=== PATIENT | female | born 1995 | race Caucasian/White ===

== ENCOUNTER 2019-01-22 12:39 | Emergency (ER) | payer MEDICAID, OTHER ==
[2019-01-22] MEDS ORDERED: Sulfamethoxazole/Trimethoprim 800-160 MG Tab PO ONE (12:40)
--- NOTE | 2019-01-22 12:57 | EDM.PDOC ---
ED HPI GENERAL MEDICAL PROBLEM - General Chief Complaint: General Stated Complaint: abscess on arm Time Seen by Provider: 01/22/19 12:45 Source of Information: Reports: Patient History Limitations: Reports: No Limitations - History of Present Illness INITIAL COMMENTS - FREE TEXT/NARRATIVE: Patient to the emergency department complaining of a reddened area to the right upper arm and below the left eye for the past few days. The patient denies any fever or denies any change in vision denies any ear, nose, throat symptoms denies any neck, back pain or stiffness denies any other symptoms at this point. Onset: Gradual Duration: Day(s): Location: Reports: Upper Extremity, Right, Other (Just below the left lower eyelid) Severity: Mild Improves with: Reports: None Worsens with: Reports: None Associated Symptoms: Reports: No Other Symptoms. 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) Right Upper Arm Pain Score (Numeric/FACES): 6 - Related Data Allergies Allergy/AdvReac Type Severity Reaction Status Date / Time bee venom protein (honey bee) Allergy Swelling Verified 01/22/19 12:40 Home Meds: Home Meds Sulfamethoxazole/Trimethoprim [Bactrim Ds Tablet] 1 each PO BID 10 Days #20 tablet 01/22/19 [Rx] Past Medical History Respiratory History: Reports: Asthma Psychiatric History: Reports: Anxiety, Depression Social & Family History - Family History Cardiac: Reports: Hypertension (Smoke) - Tobacco Use Smoking Status *Q: Current Every Day Smoker (urine) Tobacco Use Within Last Twelve Months: Cigarettes - Alcohol Use Alcohol Use History: No - Living Situation & Occupation Living situation: Reports: with Family ED ROS GENERAL - Review of Systems Review Of Systems: See Below Constitutional: Reports: No Symptoms. Denies: Fever, Chills HEENT: Reports: No Symptoms Respiratory: Reports: No Symptoms Cardiovascular: Reports: No Symptoms Musculoskeletal: Reports: No Symptoms Skin: Reports: Other (Abscesses as above) Psychiatric: Reports: No Symptoms ED EXAM, GENERAL - Physical Exam Exam: See Below Exam Limited By: No Limitations General Appearance: Alert, WD/WN, No Apparent Distress Ears: Normal External Exam Nose: Normal Inspection Throat/Mouth: Normal Lips, Normal Voice, No Airway Compromise Head: Atraumatic, Normocephalic Neck: Normal Inspection, Supple, Non-Tender, Full Range of Motion Respiratory/Chest: No Respiratory Distress, Lungs Clear, Normal Breath Sounds Cardiovascular: Normal Peripheral Pulses, Regular Rate, Rhythm, No Murmur Peripheral Pulses: 2+: Radial (R) Extremities: Normal Inspection, Normal Range of Motion, Non-Tender, Normal Capillary Refill Neurological: Alert, Oriented, Normal Cognition, Normal Gait Psychiatric: Normal Affect, Normal Mood Skin Exam: Warm, Dry, Normal Color, Other (Small abscess to the right upper arm as well as below the left lower eyelid) Course - Vital Signs Last Recorded V/S: Last Vital Signs Temp 37.7 C 01/22/19 12:44 Pulse 106 H 01/22/19 12:44 Resp 16 01/22/19 12:44 BP 147/89 H 01/22/19 12:44 Pulse Ox 100 01/22/19 12:44 Departure - Departure Time of Disposition: 12:56 Disposition: Home, Self-Care 01 Condition: Good Clinical Impression: Skin abscess - Discharge Information *PRESCRIPTION DRUG MONITORING PROGRAM REVIEWED*: Not Applicable *COPY OF PRESCRIPTION DRUG MONITORING REPORT IN PATIENT BLANK: Not Applicable Prescriptions: Sulfamethoxazole/Trimethoprim [Bactrim Ds Tablet] 1 each PO BID 10 Days #20 tablet Instructions: Skin Abscess, [id number] Additional Instructions: Apply warm moist heat off and on frequently Bactrim DS one every 12 hours for 10 days Follow-up in the clinic this coming week, call tomorrow for an appointment time Return to emergency department sooner if worse or any problems - Problem List & Annotations (1) Skin abscess SNOMED Code(s): 51062900 Code(s): L02.91 - CUTANEOUS ABSCESS, UNSPECIFIED Status: Acute Priority: High Qualifiers: Site of cutaneous abscess: extremity Site of cutaneous abscess of extremity : upper extremity Laterality: right Qualified Code(s): L02.413 - Cutaneous abscess of right upper limb - Problem List Review Problem List Initiated/Reviewed/Updated: Yes - Assessment/Plan Plan: The patient was evaluated in the emergency department the patient does have 2 abscesses neither abscesses ready for incision and draining, the patient will be advised to apply warm moist he off and on frequently she'll be given Bactrim DS 1 by mouth twice a day for 10 days she'll be advised to have this rechecked in the clinic this week and I advised her that an incision and drain might be necessary at that point. The patient is to return to the emergency department sooner if worsening problems
[2019-01-22] MEDS ORDERED: Take Home: Sulfamethoxazole/Trimethoprim 800-160 MG Tab, 2 Tab Pack PO ONE (12:59)
== END 2019-01-22 13:19 | disposition home or self-care (01) ==
LOC: CC.ED 12:39
DX: L02.413 Cutaneous abscess of right upper limb (principal); H00.035 Abscess of left lower eyelid; F17.210 Nicotine dependence, cigarettes, uncomplicated; Z91.030 Bee allergy status
CPT/HCPCS: 99282; A9270

== ENCOUNTER 2019-01-26 02:56 | Emergency (ER) | payer MEDICAID ==
[2019-01-26] MEDS ORDERED: Lidocaine 1% 20 ML MDV INJECT ONE (03:23)
[2019-01-26] MEDS ORDERED: cefTRIAXone 1 GM Vial IM ONE (03:23)
--- NOTE | 2019-01-26 03:27 | EDM.PDOC ---
ED HPI GENERAL MEDICAL PROBLEM - General Chief Complaint: General Stated Complaint: ABSCESS Time Seen by Provider: 01/26/19 03:14 Source of Information: Reports: Patient History Limitations: Reports: No Limitations - History of Present Illness INITIAL COMMENTS - FREE TEXT/NARRATIVE: Patient presents to ER with complaints of right upper arm discomfort. Has known abscess to this area. Was seen in ER on Wednesday. Area was warm and red but unable to be lanced at that time. WAs sent home with Bactrim #2 tabs and was to fill Rx on Wednesday. Patient states she did not know where the script was sent so she has not picked it up or taken any further meds since Wednesday am. Tonight the abscess did pop, has had purulent drainage from the area. Denies fever. States pain improved since it started draining. Concerned about the drainage. Onset: Gradual Duration: Day(s): Location: Reports: Upper Extremity, Right Quality: Reports: Ache Severity: Mild Associated Symptoms: Reports: No Other Symptoms - Related Data Allergies Allergy/AdvReac Type Severity Reaction Status Date / Time bee venom protein (honey bee) Allergy Swelling Verified 01/26/19 02:57 Home Meds: Home Meds Sulfamethoxazole/Trimethoprim [Bactrim Ds Tablet] 1 each PO BID 10 Days #20 tablet 01/22/19 [Rx] Past Medical History Cardiovascular History: Reports: Hypertension Respiratory History: Reports: Asthma Musculoskeletal History: Reports: Fracture Psychiatric History: Reports: Anxiety, Depression - Past Surgical History Cardiovascular Surgical History: Reports: None Respiratory Surgical History: Reports: None Musculoskeletal Surgical History: Reports: None Social & Family History - Family History Family Medical History: Noncontributory Cardiac: Reports: Hypertension - Tobacco Use Smoking Status *Q: Current Every Day Smoker Years of Tobacco use: 10 Packs/Tins Daily: 0.5 - Caffeine Use Caffeine Use: Reports: Soda - Recreational Drug Use Recreational Drug Use: No - Living Situation & Occupation Living situation: Reports: with Family ED ROS GENERAL - Review of Systems Review Of Systems: See Below Constitutional: Denies: Fever, Chills, Malaise, Weakness HEENT: Reports: No Symptoms Respiratory: Denies: Shortness of Breath, Cough Cardiovascular: Denies: Chest Pain, Edema, Lightheadedness Endocrine: Denies: Fatigue GI/Abdominal: Denies: Abdominal Pain, Nausea, Vomiting : Reports: No Symptoms Musculoskeletal: Reports: Arm Pain Skin: Reports: Erythema Neurological: Reports: No Symptoms Psychiatric: Reports: No Symptoms ED EXAM, GENERAL - Physical Exam Exam: See Below Exam Limited By: No Limitations General Appearance: Alert, WD/WN, No Apparent Distress Nose: Normal Inspection, Normal Mucosa Throat/Mouth: Normal Inspection, Normal Oropharynx Head: Normocephalic Neck: Normal Inspection, Supple, Non-Tender Respiratory/Chest: No Respiratory Distress, Lungs Clear, Normal Breath Sounds Cardiovascular: Regular Rate, Rhythm Neurological: Alert, Oriented Skin Exam: Erythema (irregular 3 cm erythema to right upper arm, draining serosanguinous drainage. Tender to palpation. ) Course - Vital Signs Last Recorded V/S: Last Vital Signs Temp 99.1 F 01/26/19 03:00 Pulse 115 H 01/26/19 03:00 Resp 18 01/26/19 03:00 BP 134/76 01/26/19 03:00 Pulse Ox 100 01/26/19 03:00 - Orders/Labs/Meds Meds: Medications Discontinued Medications Generic Name Dose Route Start Last Admin Trade Name Flora PRN Reason Stop Dose Admin Ceftriaxone Sodium 1 gm 01/26/19 03:23 01/26/19 03:28 Rocephin IM 01/26/19 03:24 1 gm ONETIME ONE Administration Lidocaine HCl 20 ml 01/26/19 03:23 01/26/19 03:29 Xylocaine 1% INJECT 01/26/19 03:24 2.1 ml ONETIME ONE Administration - Re-Assessments/Exams Free Text/Narrative Re-Assessment/Exam: 01/26 Rocephin given. Discharge home on Bactrim Departure - Departure Time of Disposition: 03:24 Disposition: Home, Self-Care 01 Condition: Good Clinical Impression: Skin abscess - Discharge Information Referrals: PCP,Unknown [Primary Care Provider] - Forms: ED Department Discharge Additional Instructions: 1. Warm packs to arm 2. Tylenol or ibuprofen for fever or discomfort 3. Bactrim DS one twice a day for 7 days 4. Follow up with your provider if persisting concerns.
== END 2019-01-26 03:34 | disposition home or self-care (01) ==
LOC: CC.ED 02:56
DX: L02.413 Cutaneous abscess of right upper limb (principal); I10 Essential (primary) hypertension; Z91.030 Bee allergy status
CPT/HCPCS: 96372; 99282; J0696; J2001

== ENCOUNTER 2020-02-04 18:46 | Emergency (ER) | payer MEDICAID ==
[2020-02-04] MEDS ORDERED: Lidocaine 1% 20 ML MDV INJECT ONE (18:48)
[2020-02-04] MEDS ORDERED: Diphtheria,Pertussis(Acell),Tetanus Vaccine 0.5 ML Syringe IM ONE (18:49)
[2020-02-04] MEDS ORDERED: Bacitracin/Neomycin/Polymyxin B Oint 0.9 GM U/D Packet TOP ONE (19:07)
--- NOTE | 2020-02-04 19:12 | EDM.PDOC ---
ED HPI GENERAL MEDICAL PROBLEM - General Chief Complaint: Laceration Stated Complaint: hand laceration Time Seen by Provider: 02/04/20 18:47 Source of Information: Reports: Patient History Limitations: Reports: No Limitations - History of Present Illness INITIAL COMMENTS - FREE TEXT/NARRATIVE: This patient is a 25 year old female that presents to the ER. Patient reports cutting wood with a knife. Patient reports accidently cutting her left hand with the knife. No other injuries. 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 [No Known Home Meds] 02/04/20 [History] Past Medical History - Past Health History Medical/Surgical History: Denies Medical/Surgical History Cardiovascular History: Reports: Hypertension Respiratory History: Reports: Asthma Musculoskeletal History: Reports: Fracture Psychiatric History: Reports: Anxiety, Depression - Past Surgical History Cardiovascular Surgical History: Reports: None Respiratory Surgical History: Reports: None Musculoskeletal Surgical History: Reports: None Social & Family History - Family History Family Medical History: Noncontributory Cardiac: Reports: Hypertension - Tobacco Use Smoking Status *Q: Current Every Day Smoker Years of Tobacco use: 10 Packs/Tins Daily: 0.5 - Caffeine Use Caffeine Use: Reports: None - Recreational Drug Use Recreational Drug Use: No - Living Situation & Occupation Living situation: Reports: with Family ED ROS GENERAL - Review of Systems Review Of Systems: See Below Constitutional: Reports: No Symptoms HEENT: Reports: No Symptoms Respiratory: Reports: No Symptoms Cardiovascular: Reports: No Symptoms Musculoskeletal: Reports: Hand Pain (left pain at laceration site. ) Skin: Reports: Wound (laceration left hand base of thumb) Neurological: Reports: No Symptoms Psychiatric: Reports: No Symptoms ED EXAM, SKIN/RASH Exam: See Below Exam Limited By: No Limitations General Appearance: Alert, WD/WN, No Apparent Distress Respiratory/Chest: No Respiratory Distress, Lungs Clear, Normal Breath Sounds, No Accessory Muscle Use Cardiovascular: Normal Peripheral Pulses, Regular Rate, Rhythm Peripheral Pulses: 2+: Radial (L), Radial (R) Extremities: Normal Range of Motion, Normal Capillary Refill, Other (multiple scarring vega to BUE. Mild tenderness over laceration site. ROM intact. Neurovascular intact. sensory intact. motor ntact. pulses +2, cap refill < 2 sec. No pain with flexion or extension of thumb or hand left.) Neurological: Alert, Oriented Psychiatric: Normal Affect, Normal Mood Skin: Warm, Dry, Normal Color, No Rash, Wound/Incision (laceration left hand base of thumb dorsal side) Location, Skin: Upper Extremity, Left ED SKIN PROCEDURES - Laceration/Wound Repair Left Hand Appearance: Superficial Distal NVT: Neuro & Vascular Intact, No Tendon Injury Anesthetic Type: Local Local Anesthesia - Lidocaine (Xylocaine): 1% Plain Local Anesthetic Volume: 1cc Skin Prep: Chlorhexidine (Hibiciens) Exploration/Debridement/Repair: Wound Explored, In a Bloodless Field, Explored to Base, No Foreign Material Found Closed with: Sutures Lac/Wound length In cm: 1 Suture Size: 5-0 # of Sutures: 2 Suture Type: Nylon Tetanus Status Addressed: Yes Complications: No Course - Vital Signs Last Recorded V/S: Last Vital Signs Temp 97.8 F 02/04/20 18:59 Pulse 88 02/04/20 18:59 Resp 12 02/04/20 18:59 BP 142/75 H 02/04/20 18:59 Pulse Ox 100 02/04/20 18:59 - Orders/Labs/Meds Orders: Active Orders 24 hr Category Date Time Status Vaccines to be Administered [RC] PER UNIT ROUTINE Care 02/04/20 18:49 Active Meds: Medications Discontinued Medications Generic Name Dose Route Start Last Admin Trade Name Freq PRN Reason Stop Dose Admin Diphtheria/Tetanus/Acell Pertussis 0.5 ml 02/04/20 18:49 02/04/20 18:53 Adacel IM 02/04/20 18:50 0.5 ml .ONCE ONE Administration Lidocaine HCl 20 ml 02/04/20 18:48 02/04/20 18:56 Xylocaine 1% INJECT 02/04/20 18:49 20 ml ONETIME ONE Administration Neomycin/Polymyxin/Bacitracin 1 each 02/04/20 19:07 02/04/20 19:10 Triple Antibiotic Oint TOP 02/04/20 19:08 1 each ONETIME ONE Administration Departure - Departure Time of Disposition: 19:07 Disposition: Home, Self-Care 01 Condition: Good Clinical Impression: Laceration - Discharge Information *PRESCRIPTION DRUG MONITORING PROGRAM REVIEWED*: Not Applicable *COPY OF PRESCRIPTION DRUG MONITORING REPORT IN PATIENT BLANK: Not Applicable Instructions: Laceration Care, Adult, [id number], Sutures, Cuong, or Adhesive Wound Closure, [id number] Referrals: PCP,None [Primary Care Provider] - Forms: ED Department Discharge Additional Instructions: Followup with primary care provider or clinic in about 5 days for suture removal Return to the ER for worsening of condition or any emergent concerns such as fever, vomiting, redness, drainage, infection Wash wound with soap and water twice a day gently, rinse, pat dry. Keep clean and covered Sepsis Event Note (ED) - Evaluation Sepsis Screening Result: No Definite Risk - Focused Exam Vital Signs: Vital Signs Temp Pulse Resp BP Pulse Ox 02/04/20 18:59 97.8 F 88 12 142/75 H 100 - My Orders Last 24 Hours: My Active Orders 02/04/20 18:49 Vaccines to be Administered [RC] PER UNIT ROUTINE - Assessment/Plan Last 24 Hours: My Active Orders 02/04/20 18:49 Vaccines to be Administered [RC] PER UNIT ROUTINE Plan: PLEASE SEE RN NOTE FOR PFSH.
== END 2020-02-04 19:19 | disposition home or self-care (01) ==
LOC: CC.ED 18:46
DX: S61.012A Laceration without foreign body of left thumb without damage to nail, initial encounter (principal); I10 Essential (primary) hypertension; J45.909 Unspecified asthma, uncomplicated; F17.210 Nicotine dependence, cigarettes, uncomplicated; Z91.030 Bee allergy status; Z23 Encounter for immunization; W26.0XXA Contact with knife, initial encounter
CPT/HCPCS: 12001; 90471; 90715; 99282; J2001

== ENCOUNTER 2020-04-26 21:00 | Emergency (ER) | payer MEDICAID ==
--- NOTE | 2020-04-26 21:44 | EDM.PDOC ---
ED HPI GENERAL MEDICAL PROBLEM - General Chief Complaint: General Stated Complaint: hit head Time Seen by Provider: 04/26/20 21:30 Source of Information: Reports: Patient History Limitations: Reports: No Limitations - History of Present Illness INITIAL COMMENTS - FREE TEXT/NARRATIVE: Patient presents to ER with complaints of a "bump to the back of my head". She was playing around yesterday with her cat and fell back on her bed, hitting her head on the headboard. She sustained a small cut with minimal bleeding, no loss of consciousness. Has mild headache but was "concerned about the bump and my boyfriend felt I should get it checked out". Denies any double or blurred vision. States the area to the back of her head is tender. No neurological concerns. Duration: Day(s): Location: Reports: Head Quality: Reports: Ache Severity: Mild Improves with: Reports: None Worsens with: Reports: None Associated Symptoms: Reports: Headaches. Denies: Confusion, Chest Pain, Fever/Chills, Loss of Appetite, Nausea/Vomiting, Shortness of Breath, Weakness - Related Data Allergies Allergy/AdvReac Type Severity Reaction Status Date / Time bee venom protein (honey bee) Allergy Swelling Verified 04/26/20 21:20 Home Meds: Home Meds Acetaminophen [Tylenol] 325 mg PO ASDIRECTED PRN 04/26/20 [History] Aspirin 1 tab PO ASDIRECTED PRN 04/26/20 [History] Past Medical History Cardiovascular History: Reports: Hypertension, Other (See Below) Respiratory History: Reports: Asthma Musculoskeletal History: Reports: Fracture Psychiatric History: Reports: Anxiety, Depression - Past Surgical History Cardiovascular Surgical History: Reports: None, Other (See Below) Other Cardiovascular Surgeries/Procedures: irregular heart beat Respiratory Surgical History: Reports: None Musculoskeletal Surgical History: Reports: None Social & Family History - Family History Family Medical History: Noncontributory Cardiac: Reports: Hypertension - Tobacco Use Tobacco Use Status *Q: Current Every Day Tobacco User Years of Tobacco use: 11 Packs/Tins Daily: 0.5 - Caffeine Use Caffeine Use: Reports: Soda - Recreational Drug Use Recreational Drug Use: No - Living Situation & Occupation Living situation: Reports: with Family ED ROS GENERAL - Review of Systems Review Of Systems: See Below Constitutional: Denies: Fever, Chills, Malaise, Weakness, Decreased Appetite HEENT: Denies: Ear Pain, Sinus Problem, Throat Pain Respiratory: Denies: Shortness of Breath, Cough Cardiovascular: Denies: Chest Pain, Edema, Lightheadedness Endocrine: Denies: Fatigue GI/Abdominal: Denies: Abdominal Pain, Nausea, Vomiting : Reports: No Symptoms Musculoskeletal: Reports: No Symptoms Skin: Reports: Wound Neurological: Reports: Headache ED EXAM, GENERAL - Physical Exam Exam: See Below Exam Limited By: No Limitations General Appearance: Alert, WD/WN, No Apparent Distress Eye Exam: Bilateral Eye: EOMI, PERRL Ears: Normal External Exam, Normal TMs Nose: Normal Inspection, Normal Mucosa, No Blood Throat/Mouth: Normal Inspection, Normal Oropharynx Head: Normocephalic Neck: Normal Inspection, Supple, Non-Tender Respiratory/Chest: No Respiratory Distress, Lungs Clear, Normal Breath Sounds Cardiovascular: Regular Rate, Rhythm GI/Abdominal: Normal Bowel Sounds, Soft Neurological: Alert, Oriented, CN II-XII Intact, Normal Cognition, Normal Gait, Normal Reflexes, No Motor/Sensory Deficits Skin Exam: Warm, Dry, Wound/Incision (superficial wound to left posterior area of head. Mild hematoma. No bleeding. Wound edges well approximated.) Departure - Departure Time of Disposition: 21:43 Disposition: Home, Self-Care 01 Condition: Good Clinical Impression: Hematoma, Headache - Discharge Information *PRESCRIPTION DRUG MONITORING PROGRAM REVIEWED*: No *COPY OF PRESCRIPTION DRUG MONITORING REPORT IN PATIENT BLANK: No Referrals: Kaushal Ruiz MD [Primary Care Provider] - Additional Instructions: 1. Rest 2. Tylenol or ibuprofen for headache 3. Ice pack to area to reduce hematoma 4. Follow up if concerns
== END 2020-04-26 21:50 | disposition home or self-care (01) ==
LOC: CC.ED 21:00
DX: S00.03XA Contusion of scalp, initial encounter (principal); J45.909 Unspecified asthma, uncomplicated; I10 Essential (primary) hypertension; F17.210 Nicotine dependence, cigarettes, uncomplicated; Z91.030 Bee allergy status; W01.198A Fall on same level from slipping, tripping and stumbling with subsequent striking against other object, initial encounter
CPT/HCPCS: 99283

== ENCOUNTER 2021-12-22 02:36 | Emergency (ER) | payer MEDICAID ==
[2021-12-22 03:38] LABS: AMPHETAMINES,URINE POSITIVE (NEGATIVE); BARBITURATES,URINE NEGATIVE (NEGATIVE); BENZODIAZEPINE,URINE NEGATIVE (NEGATIVE); METHADONE,URINE NEGATIVE (NEGATIVE); METHAMPHETAMINES,URINE POSITIVE (NEGATIVE); OPIATES,URINE NEGATIVE (NEGATIVE); OXYCODONE,URINE NEGATIVE (NEGATIVE); PHENCYCLIDINE,URINE NEGATIVE (NEGATIVE); TCA,URINE NEGATIVE (NEGATIVE)
[2021-12-22 03:39] LABS: MDMA (ECSTASY), URINE POSITIVE (NEGATIVE)
[2021-12-22] MEDS: Propranolol 60 MG Cap.ER PO SCH ×2 (05:00→05:01)
[2021-12-22] MEDS ORDERED: Propranolol 60 MG Cap.ER PO SCH (08:00)
== END 2021-12-22 05:26 | disposition home or self-care (01) ==
LOC: SUPCPDRO 02:36 → CC.ED 02:36
DX: R60.0 Localized edema (principal); R00.0 Tachycardia, unspecified; E05.90 Thyrotoxicosis, unspecified without thyrotoxic crisis or storm; R94.6 Abnormal results of thyroid function studies; I10 Essential (primary) hypertension; F17.210 Nicotine dependence, cigarettes, uncomplicated; Z91.030 Bee allergy status; Z79.82 Long term (current) use of aspirin; Z79.899 Other long term (current) drug therapy
CPT/HCPCS: 36415; 71046; 80053; 80305; 81001; 81025; 83880; 84439; 84443; 84481; 84484; 85025; 93005; 99284; A9270

== ENCOUNTER 2022-01-21 03:19 | Emergency (ER) | payer MEDICAID ==
[2022-01-21 04:07] LABS: CHLORIDE,CL 108 mEq/L (98-106); ESTIMATED GFR 102 mL/min (>=60); SODIUM,NA 140 mEq/L (136-145)
[2022-01-21] MEDS: Metoprolol Tartrate 5 MG/5 ML SDV IVPUSH ONE (04:10)
[2022-01-21] MEDS: Sodium Chloride 0.9% 1,000 ML IV ONE (04:26)
[2022-01-21] MEDS: Diltiazem 25 MG/5 ML SDV IVPUSH ONE (04:30)
[2022-01-21 05:07] LABS: AMPHETAMINES,URINE POSITIVE (NEGATIVE); BARBITURATES,URINE NEGATIVE (NEGATIVE); BENZODIAZEPINE,URINE NEGATIVE (NEGATIVE); MDMA (ECSTASY), URINE NEGATIVE (NEGATIVE); METHADONE,URINE NEGATIVE (NEGATIVE); METHAMPHETAMINES,URINE POSITIVE (NEGATIVE); OPIATES,URINE NEGATIVE (NEGATIVE); OXYCODONE,URINE NEGATIVE (NEGATIVE); PHENCYCLIDINE,URINE NEGATIVE (NEGATIVE); TCA,URINE NEGATIVE (NEGATIVE)
== END 2022-01-21 05:45 | disposition home or self-care (01) ==
LOC: CC.ED 03:19
DX: I47.1 Supraventricular tachycardia (principal); F15.10 Other stimulant abuse, uncomplicated; E05.90 Thyrotoxicosis, unspecified without thyrotoxic crisis or storm
CPT/HCPCS: 36415; 80053; 80305-QW; 81001; 83735; 84439; 84443; 85025; 93005; 93010; 96361; 96374; 96375; 99284; 99285-25; J3490; J7030